=== PATIENT | male | born 1940 | race Caucasian/White ===

== ENCOUNTER → 2017-10-28 | Outpatient (CLI) | payer OTHER ==
--- NOTE | 2017-10-28 16:09 | DIAGNOSTIC IMAGING REPORT ---
CHEST 2 VIEWS ROUTINE HISTORY: 77 years-old Male PAT preoperative exam. No acute chest complaints. COMPARISON: None available TECHNIQUE: PA and lateral views of the chest FINDINGS: Cardiomediastinal and hilar silhouettes are within normal limits. Calcification of the aorta. Minimal subsegmental bibasilar atelectasis. No pneumothorax, pleural effusion, focal airspace consolidation or overt pulmonary edema. Degenerative changes of the shoulders and spine. Surgical clips project over the central lower neck and upper abdomen. IMPRESSION: No acute process. The above report was generated using voice recognition software. It may contain grammatical, syntax or spelling errors. Electronically signed by: Tigre Patterson M.D. 10/28/2017 4:07 PM Dictated Date/Time: 10/28/2017 4:06 PM
[2017-10-28 16:32] LABS: BASO % 0.9 %; BASO ABS # 0.05 K/uL (0-0.2); EOS % 1.3 %; EOS ABS # 0.07 K/uL (0-0.5); HEMATOCRIT 45.8 % (42-52); HEMOGLOBIN 16.2 g/dL (14.0-18.0); IG# 0.01 K/uL (0.00-0.02); LYMPH ABS # 1.74 K/uL (1.2-3.4); MEAN CELL VOLUME 96.8 fL (80-100); MEAN CORPUSCULAR HEMOGLOBIN 34.2 pg (25-34); MEAN CORPUSCULAR HGB CONC 35.4 g/dl (32-36); MONO % 11.4 %; NEUT % 53.2 %; PLATELET COUNT 179 K/uL (130-400); RED CELL DISTRIBUTION WIDTH CV 12.8 % (11.5-14.5); WHITE BLOOD COUNT 5.27 K/uL (4.8-10.8)
[2017-10-28 16:42] LABS: PTT PATIENT 25.4 SECONDS (21.0-31.0)
[2017-10-29 05:34] LABS: HEMOGLOBIN A1C 5.9 % (4.5-5.6)
== END | disposition home or self-care (01) ==
LOC: C.CPL 14:14
PROVIDERS: ATTEND Orthopaedic Surgery
DX: Z01.811 Encounter for preprocedural respiratory examination (principal); Z01.812 Encounter for preprocedural laboratory examination

== ENCOUNTER 2019-12-01 06:43 | Inpatient (IN) ==
--- NOTE | 2019-11-04 09:36 | PAT Medication Instructions ---
Medication Instructions Date of Service November 04, 2019 Home Medications allopurinol 300 mg PO QAM ascorbic acid (vitamin C) [Vitamin C] 1,000 mg PO QAM aspirin [Aspirin Low Dose] 81 mg PO QAM cholecalciferol (vitamin D3) [Vitamin D3] 1,000 unit PO QAM levothyroxine 150 mcg PO QAM lisinopril 5 mg PO QAM metformin 500 mg PO BID multivitamin 1 tab PO QAM pantoprazole 40 mg PO QAM atorvastatin 10 mg PO QAM furosemide [Lasix] 20 mg PO QAM glucos sul 9KZc-[id number]-xibkl-C-Mn [Glucosamine Chondroitin] 2 cap PO DAILY omega 5-ncw-oco-fish oil [Fish Oil] 1 cap PO QAM STOP taking 2 weeks before surgery (or as soon as possible if surgery is within 2 weeks) glucos sul 8HUw-alz-xvsiv-C-Mn [Glucosamine Chondroitin] 2 cap PO DAILY omega 6-dvr-wrr-fish oil [Fish Oil] 1 cap PO QAM DO NOT take the morning of surgery ascorbic acid (vitamin C) [Vitamin C] 1,000 mg PO QAM cholecalciferol (vitamin D3) [Vitamin D3] 1,000 unit PO QAM lisinopril 5 mg PO QAM metformin 500 mg PO BID multivitamin 1 tab PO QAM furosemide [Lasix] 20 mg PO QAM Take morning of surgery With a small sip of water, OTHERWISE NOTHING TO EAT OR DRINK AFTER MIDNIGHT: allopurinol 300 mg PO QAM aspirin [Aspirin Low Dose] 81 mg PO QAM levothyroxine 150 mcg PO QAM pantoprazole 40 mg PO QAM atorvastatin 10 mg PO QAM Take evening before surgery metformin 500 mg PO BID Other Notes If you have any questions please call us at [phone] or [phone] or [phone] or [phone]
--- NOTE | 2019-11-05 11:37 | Anesthesiology Consultation ---
Date of Service November 05, 2019 Assessment & Plan (1) Encounter for pre-operative examination: Chart Review Chart Review: Pending: Refer to Additional Notes / Consult section (surgeon ordered PCP and cardio clearance and preop Covid testing ) Awaiting surgeon ordered PCP clearance (done 11/02) and surgeon ordered cardio clearance (scheduled 11/17) - Check BSG AM DOS Per PAT appt on 11/05/19, patient resides in [facility]. Travels to [facility]. No known Covid positive contacts or Covid related symptoms. Educated patient to follow up with surgeon's office regarding Covid testing. Educated on importance of self quarantining, social distancing and wearing mask in public both for the patient and household contacts. Left TKA 11/26/17= Done under SAB at L3-4. 1 attempt. No anesthesia issues noted per record Teaching & Discussion Pre-Anesthesia Teaching/Discussion Notes: Instructed NPO after midnight before surgery,except medications with 15 cc of water. Medication instructions provided according to the PAT guidelines. History Surgery Operation Date: 12/01/19 07:15 Proposed Procedures p Right Posterior Total Hip Arthroplasty - Aubrey Ashley DO Height/Weight Height: 5 ft 5 in Weight: 105.1 kg Allergies Allergy/AdvReac Type Severity Reaction Status Date / Time No Known Allergies Allergy Verified 05/12/19 14:14 Medications Home Medications Medication Instructions Recorded Confirmed Last Taken allopurinol 300 mg PO QAM 10/28/17 11/04/19 11/26/17 04:30 ascorbic acid (vitamin C) [Vitamin 1,000 mg PO QAM 10/28/17 11/04/19 11/25/17 07:30 C] aspirin [Aspirin Low Dose] 81 mg PO QAM 10/28/17 11/04/19 11/25/17 07:30 cholecalciferol (vitamin D3) 1,000 unit PO QAM 10/28/17 11/04/19 11/25/17 07:30 [Vitamin D3] metformin 500 mg PO BID 10/28/17 11/04/19 Unknown multivitamin 1 tab PO QAM 10/28/17 11/04/19 11/25/17 07:30 pantoprazole 40 mg PO QAM 10/28/17 11/04/19 Unknown atorvastatin 10 mg PO QAM 11/06/17 11/04/19 11/25/17 07:30 furosemide [Lasix] 20 mg PO QAM 11/06/17 11/04/19 11/25/17 07:30 glucos sul 3VVo-llz-iijkd-C-Mn 2 cap PO DAILY 05/12/19 11/04/19 Unknown [Glucosamine Chondroitin] omega 1-pqj-nfu-fish oil [Fish Oil] 1 cap PO QAM 05/12/19 11/04/19 Unknown levothyroxine 125 mcg PO DAILY 11/05/19 11/05/19 Unknown lisinopril 10 mg PO DAILY 11/05/19 11/05/19 Unknown Past Medical History Medical History (Updated 11/05/19 @ 12:38 by Eneida Garcia PA-C) Back problem BPH (benign prostatic hyperplasia) No urinary issues CKD (chronic kidney disease) Pt states PCP recommends caution with IV fluids Diabetes mellitus, type 2 Stable and controlled 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 No issues since off Coumadin GERD (gastroesophageal reflux disease) Well controlled and stable History of gout No recent flares HTN (hypertension) Hyperlipidemia Hypothyroid Due to thyroidectomy Osteoarthritis Exercise / Class Metabolic Activity II 4-5 Yardwork/Stairs/Walk up hill (one flight of stairs - no chest pain or SOB) Past Family History Family History Unknown No problems noted. Sister Family history of diabetes mellitus Past Surgical History Surgical History H/O colonoscopy H/O tooth extraction History of cataract surgery R&L History of cholecystectomy History of colonoscopy History of esophagogastroduodenoscopy (EGD) History of herniorrhaphy History of thyroidectomy, total Pt unsure of why thyroid was removed History of tonsillectomy History of total left knee replacement Past Anesthesia History No Hx of Anesthesia Complications and No Family Hx of Anesthesia Complications History of PONV No Hx of PONV and No Hx of Motion Sickness Social History Smoking Status: Former smoker tobacco type: cigarettes Do You Dip or Chew Tobacco: No Smoking End Date: 30 YEARS AGO Hx Alcohol Use: Yes Alcohol type: beer alcohol intake frequency: 0-2 drinks per day Alcohol Intake Frequency Comment: 3 CANS BEER DAILY Hx Substance Use: No substance use type: does not use Review of Systems Two episodes of chest pain three weeks ago. Occurred at rest. Pain lasted about 30 minutes. Pain mostly to throat. No SOB. Was nauseous. Does have hx of reflux. Pt has cardiac clearance prior to surgery and will discuss with clerk checker Occ snoring and witnessed apnea- no hx of sleep study. Pt does not want sleep study done in future Patient denies shortness of breath, dyspnea on exertion, cough, wheezing, palpitations. No hx of seizures, stroke, ND. No hx of blood transfusions Physical Exam Vital Signs VITALS BP 154/71 P 72 TEMP 98.9 SP02 96% RESP 16 Constitutional no acute distress ENMT Mouth: no TMJ clicking Thyromental Distance: > or= 3.5 Finger Breadths (4.0) Mallampati Class: III Full dentures top and bottom Neck + limited neck extension (moderate ) Respiratory normal respiratory effort; no respiratory distress Auscultation: lungs clear to auscultation bilaterally; no wheezes Cardiovascular Rate/Rhythm: regular rate and regular rhythm Heart Sounds: no murmur Vessels: no carotid bruit Musculoskeletal Spine: no pain with cervical ROM Neurologic moves all extremities Psychiatric Orientation: alert Testing Laboratory Results 11/05/19 12:09 11/05/19 12:09 PT 10.5 Seconds (9.0-12.0) 11/05/19 12:09 INR 1.0 (0.9-1.1) 11/05/19 12:09 APTT 25.4 Seconds (21.0-31.0) 11/05/19 12:09 Hemoglobin A1c 5.7 % (4.5-5.6) H 11/05/19 12:09 Urine Color Yellow 11/05/19 12:09 Urine Appearance Clear (Clear) 11/05/19 12:09 Urine pH 5.0 (4.5-7.5) 11/05/19 12:09 Ur Specific [place] 1.013 (1.000-1.030) 11/05/19 12:09 Urine Protein Negative (Negative) 11/05/19 12:09 Urine Glucose (UA) Negative (Negative) 11/05/19 12:09 Urine Ketones Negative (Negative) 11/05/19 12:09 Urine Nitrite Negative (Negative) 11/05/19 12:09 Ur Leukocyte Esterase Negative (Negative) 11/05/19 12:09 Blood Type A Positive 11/05/19 12:09 Antibody Screen NEGATIVE 11/05/19 12:09 Electrocardiogram Date: 11/05/19 Findings: + NSR @ (68) Chest X-Ray Date: 11/05/19 Findings: + NAD There is stable atelectasis/scarring at the right lung base.
--- NOTE | 2019-11-05 13:15 | XRay Report ---
XR chest Pre-admission PA/Lat CLINICAL HISTORY: Preoperative chest COMPARISON STUDY: 05/19/2019 FINDINGS: The cardiac and mediastinal contours are normal. There is no evidence of focal pulmonary co nsolidation. There is no evidence of failure. No pleural effusions are visualized.[There is stable at electasis/scarring at the right lung base. Surgical clips project over the lower neck. IMPRESSION: No active disease in the chest. ACT 112: Negative or not required by law. Electronically signed by: Tate Decker M.D. 11/05/2019 12:55 PM
[2019-11-05 13:19] LABS: Appearance Urine Clear (Clear); Bilirubin Urine Negative (Negative); Blood Urine Negative (Negative); Color Urine Yellow; Glucose Urine UA Negative (Negative); Ketones Urine Negative (Negative); Leukocyte Esterase Urine Negative (Negative); Nitrite Urine Negative (Negative); Protein Urine Negative (Negative); Specific Gravity Urine 1.013 (1.000-1.030); Urobilinogen Urine Negative (Negative)
[2019-11-05 13:22] LABS: Basophils # (auto) 0.04 K/uL (0-0.2); Basophils % (auto) 0.6 %; Eosinophils # (auto) 0.14 K/uL (0-0.5); Eosinophils % (auto) 2.3 %; Hematocrit (blood only) 39.6 % (42-52); Immature Granulocytes # (auto) 0.02 K/uL (0.00-0.02); Immature Granulocytes % (auto) 0.3 %; Lymphocytes # (auto) 1.57 K/uL (1.2-3.4); Lymphocytes % (auto) 25.2 %; Mean Corpuscular Hemoglobin 33.6 pg (25-34); Mean Corpuscular Hgb Conc 35.4 g/dL (32-36); Mean Platelet Volume 9.4 fL (7.4-10.4); Monocytes # (auto) 0.63 K/uL (0.11-0.59); Monocytes % (auto) 10.1 %; Neutrophils # (auto) 3.82 K/uL (1.4-6.5); Neutrophils % (auto) 61.5 %; Platelet Count 177 K/uL (130-400); RDW Coefficient of Variation 12.6 % (11.5-14.5); RDW Standard Deviation 43.2 fL (36.4-46.3); Red Blood Count 4.17 M/uL (4.7-6.1); White Blood Count 6.22 K/uL (4.8-10.8)
[2019-11-05 13:36] LABS: Partial Thromboplastin Ratio 0.9; Partial Thromboplastin Time 25.4 Seconds (21.0-31.0); Prothrombin Time 10.5 Seconds (9.0-12.0)
[2019-11-05 13:38] LABS: Estimated Average Glucose 117 mg/dl; Hemoglobin A1C 5.7 % (4.5-5.6)
[2019-11-05 15:37] LABS: BUN Creatinine Ratio 9.6 (10-20); Calcium 9.3 mg/dl (8.5-10.1); Creatinine Clr Calc Pharmacy 49.1 ml/min; Est GFR (African American) 57.6; Est GFR (Non-African American) 49.7; Potassium 4.3 mmol/L (3.5-5.1)
--- NOTE | 2019-11-06 06:49 | Electrocardiogram Report ---
Test Reason : Blood Pressure : / mmHG Vent. Rate : 068 BPM Atrial Rate : 068 BPM P-R Int : 186 ms QRS Dur : 080 ms QT Int : 424 ms P-R-T Axes : 058 013 045 degrees QTc Int : 450 ms Normal sinus rhythm Normal ECG When compared with ECG of 19-MAY-2019 12:24, No significant change was found Confirmed by Russell Zhang ([id number]) on 11/06/2019 6:49:05 AM Referred By: Aubrey Ashley Confirmed By:Russell Zhang
--- NOTE | 2019-11-28 17:24 | History & Physical Report ---
Date of Service December 01, 2019 Assessment & Plan (1) Degenerative joint disease of right hip: I have indicated the patient for right total hip replacement. The risks, benefits and complications of surgery were explained to the patient which include but not limited to infection, acute blood loss, DVT/PE, injury to nerves, vessels, bone, soft tissue, arthrofibrosis, chronic pain, failure of the prosthesis, hip dislocation, leg length discrepancy, need for additional surgery, cardiac and pulmonary events and . The patient wished to proceed with surgery and informed consent was obtained at this time. We will plan for 81mg ASA BID post-operatively for DVT prophylaxis. Upon discharge the patient will be discharged home with home health services. Appropriate clearances by ISMAEL Dave were obtained. History of Present Illness Chief Complaint: Right hip pain/DJD The patient is a 79 year old male who presents with complaints of severe right hip pain and DJD. The patient has failed outpatient conservative treatments to this point which included NSAIDs, IA corticosteroid injection, home exercise/walking program. The patient's pain and limited function have progressed to the point where they severely hinder their activities of daily living and they no longer tolerate exercise programs. They are requesting to proceed with total hip replacement surgery. Allergies Allergy/AdvReac Type Severity Reaction Status Date / Time No Known Allergies Allergy Verified 12/01/19 07:13 Home Medications Home Medications Medication Instructions Recorded Confirmed Type Vitamin C 1,000 mg PO QAM 10/28/17 12/01/19 History allopurinol 300 mg PO QAM 10/28/17 12/01/19 History aspirin [Aspirin Low Dose] 81 mg PO QAM 10/28/17 12/01/19 History cholecalciferol (vitamin D3) 1,000 unit PO QAM 10/28/17 12/01/19 History [Vitamin D3] metformin 500 mg PO BID 10/28/17 12/01/19 History multivitamin 1 tab PO QAM 10/28/17 12/01/19 History pantoprazole 40 mg PO QAM 10/28/17 12/01/19 History atorvastatin 10 mg PO QAM 11/06/17 12/01/19 History furosemide [Lasix] 20 mg PO QAM 11/06/17 12/01/19 History glucos sul 7GAs-jpk-sjpil-C-Mn 2 cap PO DAILY 05/12/19 12/01/19 History [Glucosamine Chondroitin] omega 4-sgg-ljz-fish oil [Fish Oil] 1 cap PO QAM 05/12/19 12/01/19 History levothyroxine 125 mcg PO DAILY 11/05/19 12/01/19 History lisinopril 10 mg PO DAILY 11/05/19 12/01/19 History Past Med/Surg History Medical History Back problem BPH (benign prostatic hyperplasia) No urinary issues CKD (chronic kidney disease) Pt states PCP recommends caution with IV fluids Diabetes mellitus, type 2 Stable and controlled 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 No issues since off Coumadin GERD (gastroesophageal reflux disease) Well controlled and stable History of gout No recent flares HTN (hypertension) Hyperlipidemia Hypothyroid Due to thyroidectomy Osteoarthritis Surgical History H/O colonoscopy H/O tooth extraction History of cataract surgery R&L History of cholecystectomy History of colonoscopy History of esophagogastroduodenoscopy (EGD) History of herniorrhaphy History of thyroidectomy, total Pt unsure of why thyroid was removed History of tonsillectomy History of total left knee replacement Family History Unknown No problems noted. Sister Family history of diabetes mellitus Social History Smoking Status: Former smoker Smoking End Date: 30 YEARS AGO; Second Hand Exposure: Yes; Do You Dip or Chew Tobacco: No; Tobacco Cessation Education Requested by Patient: No Hx Alcohol Use: Yes Alcohol type: beer Hx Substance Use: No Preferred Language: Turkish Communication Ability: Effective Retrimmer Required: No Beliefs That Will Affect Care: None marital status: Life Partner Current Living Situation: Significant Other Feels Safe at Home: Yes Safety Concerns: Feels Safe At This Time Assistive Devices: Denture - Upper, Denture - Lower and Glasses Review of Systems Review of Systems: All systems reviewed & are unremarkable except as noted in HPI & below Constitutional: as per Subjective / HPI Physical Exam Physical Exam: RLE NVSI +EHL/FHL/TA/GS SILT grossly, +2 DP pulse, compartments soft NT, limited painful ROM of the hip, antalgic gait. Constitutional: WD/WN, vitals as above Eyes: PERRL, conjunctivae normal, anicteric sclerae ENMT: external ear and nose normal, oropharynx normal Neck: trachea midline, no thyromegaly Respiratory: normal respiratory effort, lungs clear to auscultation Cardiovascular: RRR, no murmur, no edema Gastrointestinal (Abdomen): normal bowel sounds, soft, nontender, no hepatosplenomegaly Musculoskeletal: no cyanosis or clubbing, extremities motor strength 5/5 Skin: no rashes, warm and dry Neurologic: patellar DTR's 2+ bilat, sensation intact Psychiatric: A+Ox3, euthymic affect Lymphatic: no cervical or axillary lymphadenopathy Results & Data Results & Data ([facility]) Diagnostic Findings Multiple views of the hip demonstrates severe DJD with complete loss of the joint space. +osteophytes, +sclerosis, +subchondral cysts. Pre Admission Testing Addendum Laboratory Results 11/05/19 12:09 11/05/19 12:09 PT 10.5 Seconds (9.0-12.0) 11/05/19 12:09 INR 1.0 (0.9-1.1) 11/05/19 12:09 APTT 25.4 Seconds (21.0-31.0) 11/05/19 12:09 Hemoglobin A1c 5.7 % (4.5-5.6) H 11/05/19 12:09 Urine Color Yellow 11/05/19 12:09 Urine Appearance Clear (Clear) 11/05/19 12:09 Urine pH 5.0 (4.5-7.5) 11/05/19 12:09 Ur Specific [place] 1.013 (1.000-1.030) 11/05/19 12:09 Urine Protein Negative (Negative) 11/05/19 12:09 Urine Glucose (UA) Negative (Negative) 11/05/19 12:09 Urine Ketones Negative (Negative) 11/05/19 12:09 Urine Nitrite Negative (Negative) 11/05/19 12:09 Ur Leukocyte Esterase Negative (Negative) 11/05/19 12:09 Blood Type A Positive 11/05/19 12:09 Antibody Screen NEGATIVE 11/05/19 12:09
[~2019-12-01 06:43] MED LIST: ACETAMINOPHEN 500 MG TAB PO SCH; BUPIVACAINE 0.5 % 5 MG/1 ML PF 10ML VIAL ONE; CEFAZOLIN 2000MG 2,000 MG/15 ML SYR IV SCH; CeleBREX 200 MG CAP PO SCH; FAMOTIDINE 20 MG TAB PO SCH; GABAPENTIN 300 MG CAP PO SCH; LR 15ML/HR IV SCH; METOCLOPRAMIDE HCL 10 MG TABLET PO SCH; ROPIVACAINE 0.5% HCL/PF 150 MG, BUPIVACAINE 0.5% MPF 30 ML, EPINEPHrine 30MG/30ML (OR U... INFIL SCH; TRANEXAMIC ACID 1,000 MG **IV Intra-op IV SCH; TRANEXAMIC ACID 1,000 MG **IV Pre-op IV SCH; dexAMETHasone 4 MG TAB PO SCH
[2019-12-01] MEDS ORDERED: fentaNYL citrate 100 MCG/2 ML VIAL ONE (07:47)
[2019-12-01] MEDS ORDERED: MIDAZOLAM HCL 1 MG/ML 2ML VIAL ONE (07:47)
[2019-12-01] MEDS ORDERED: PROPOFOL IV EMULSION 10 MG/ML 20 ML VIAL IV ONE ×2 (07:49→10:56)
[2019-12-01] MEDS ORDERED: ePHEDrine sulfate 50 MG/ML AMP IV PRN (08:54)
[2019-12-01] MEDS ORDERED: ATROPINE SULFATE 0.1 MG/ML 10ML SYR IV PRN (08:54)
[2019-12-01] MEDS ORDERED: ONDANSETRON INJ 2 MG/ML 2 ML VIAL IV PRN ×2 (08:54→13:48)
[2019-12-01] MEDS ORDERED: HYDROmorphone INJ 1 MG/ML SYRINGE IV PRN (08:54)
[2019-12-01] MEDS ORDERED: KETOROLAC 30 MG/ML VIAL IV PRN (08:54)
--- NOTE | 2019-12-01 09:49 | History & Physical Bridge Note ---
Date of Service December 01, 2019 History & Physical Bridge Note I have examined the patient, reviewed the History & Physical and in the interval since the performance of the History & Physical I have noted the following changes of clinical significance: no changes noted
[2019-12-01] MEDS ORDERED: BACITRACIN INJ 50,000 UNIT VIAL ONE (10:03)
[2019-12-01] MEDS ORDERED: ORTHO JOINT ANESTHETIC ONE (10:03)
[2019-12-01] MEDS ORDERED: PHENYLEPHRINE HCL 10 MG/ML VIAL ONE (10:56)
[2019-12-01] MEDS ORDERED: GLYCOPYRROLATE 0.2 MG/ML VIAL ONE (11:50)
--- NOTE | 2019-12-01 12:17 | Post Operative Brief Note ---
Immediate Post Op Note v1 Date of Surgery December 01, 2019 Pre & Post Diagnosis Operation Date: 12/01/19 09:15 Pre-Op Diagnosis: Unilateral Primary Osteoarthritis, Right Hip Post-Op Diagnosis: Unilateral Primary Osteoarthritis, Right Hip I identified the patient and participated in the time-out.: Yes Procedure Operation Date: 12/01/19 09:15 Actual Procedures p Right Posterior Total Hip Arthroplasty(Right) - Aubrey Ashley DO Surgeon Aubrey Ashley DO Contracts Manager Raphael Roper Estimated Blood Loss 175 Findings Consistent with Post-Op Diagnosis Fluids 1000 cc LR Specimens femoral head Anesthesia Type Spinal MAC Complications none Disposition Disposition: Recovery Room Overlapping Procedure I was present for: the critical portions of procedure. I was immediately available: during the entire case. Back up surgeon: was not required during procedure.
--- NOTE | 2019-12-01 12:21 | Operative Report ---
Post Operative Report Pre & Post Diagnosis Operation Date: 12/01/19 09:15 Pre-Op Diagnosis: Unilateral Primary Osteoarthritis, Right Hip Post-Op Diagnosis: Unilateral Primary Osteoarthritis, Right Hip I identified the patient and participated in the time-out.: Yes Procedure Operation Date: 12/01/19 09:15 Actual Procedures p Right Posterior Total Hip Arthroplasty(Right) - Aubrey Ashley DO Surgeon Aubrey Ashley DO Plastic Panel Installer Raphael Roper Estimated Blood Loss 175 Findings Consistent with Post-Op Diagnosis Fluids 1000 cc LR Specimens Femoral head Anesthesia Type Spinal MAC Complications none Disposition Disposition: Recovery Room Indications The patient is a 79-year-old male who presents with severe progressive right hip DJD who has failed outpatient conservative treatments. I indicated the patient for a total hip replacement and the risks and benefits were explained in detail which included but not limited to infection, bleeding, blood clot, damage to surrounding bone, nerves, vessels, soft tissue, hip dislocation, failure of the prosthesis, leg length discrepancy, need for additional surgery and . The patient agreed to proceed with replacement of the hip and informed consent was obtained. Appropriate clearances were obtained. Description of Procedure COMPONENTS USED: Sarah Biomet hip system: Acetabulum size 54, femur size 11 standard extended offset, femoral head 36-3.5, liner 5436, acetabular screw 35 mm x 1. Following induction of adequate spinal anesthesia, the patient was transferred to the OR table and placed in lateral decubitus position with left hip down. The right hip was prepped and draped in the typical sterile fashion. A timeout was performed, patient identified and site yudi confirmed. Appropriate antibiotics were given. A standard posterolateral/[place] incision was made. Subcutaneous tissue was sharply dissected. Electrocautery was utilized for hemostasis. The fascia was incised throughout the length of the wound and retracted with the Charnley retractor. The bursa was taken down and the short external rotators were identified. The piriformis was tagged with #1 Vicryl. The short external rotators and capsule were divided from the posterior aspect of the femur using electrocautery. The posterior capsule was tagged with #1 Vicryl. Both external rotators and posterior capsule were swept posterior and protected, along with protecting the sciatic nerve. The hip was dislocated by flexion and internally rotation in a controlled manner and exposure of the femoral neck was gained with an old-style Hohmann and a blunt cobra retractor. A femoral cutting guide was utilized for making the appropriate level femoral neck cut with reciprocating saw. The femoral head was removed, measured and reserved on the back table. Next, attention was turned to the acetabulum. A posterior and anterior offset retractor was placed to gain adequate exposure. Acetabular labrum as well as posterior capsule elements were removed using electrocautery and forceps. Fovea centralis was cleared of all soft tissue. Sequential reaming was performed starting at 46 mm and carried up to a 53 mm and decision was made to proceed with impaction of a 54 mm G7 Osteo-Ti cup. This was impacted and held using a single 35 mm bone screw. The trial acetab ular liner was placed at this time. Next, attention was turned to the proximal femur where a Bovie and pickup was used to further clear short external rotators from their insertion on the femur. Box osteotome and canal finder was used to gain access to the femoral canal and the lateral reamer on power was used to further open the proximal lateral canal. Sequentially rasping was carried up to a 11 which gave good fit and fill of the proximal femur. A trial reduction was carried out with a standard extended offset femoral neck component a 36-3.5 mm femoral head. The trial reduction was stable in all degrees of rotation with no fxhf-er-omuc impingement. The hip was dislocated, trial components were removed and access to the acetabulum was re-established. The trial liner was removed and the cup was irrigated to ensure all debris was removed. The final acetabular liner was inserted and properly seated in the cup. Access to the femur was once more gained and the size 11 femoral stem with standard extended offset was impacted into position. The hip was once more assessed with the 36-3.5 mm femoral head. Stability was accessed and found to be excellent with equal leg lengths. The hip was dislocated for the last time and the final 36-3.5 ceramic femoral head was impacted in place and the hip was reduced. Range of motion was checked once again and found to be stable. A Beta dine soak was performed. After 3 minutes, the hip was once more irrigated with copious sterile saline solution with bacitracin. The maria elena-incisional soft tissue was injected utilizing [place] ortho mix which includes a combination of Ropivicaine 0.5% 150mg, Bupivicaine 0.5%/Epinephrine 1:200,000 30ml, Toradol 30mg, Dexamethasone 4mg, Ketamine 10mg, Clonidine 100mcg and NSS 30ml Orthomix solution. The piriformis, external rotators and capsule were repaired to the greater trochanter through bone tunnels using #5 FiberWire. The fascia was closed using #1 Vicryl, subcutaneous tissue was closed using 2-0 Vicryl, and skin was closed asia and a sterile dry dressing was applied which included Silverlon. The patient tolerated the procedure well and was transported to PACU in stable condition. Due to the complex nature of the procedure, the entire surgery was performed with the operational assistance of Raphael Roper PA-C. The pizza hut assistant, under direct supervision, was involved in the actual performance of all aspects of the surgical procedure including patient positioning, hemostasis, tissue retraction, instrument management and wound closure. I attest to the content of the Intraoperative Record and any orders documented therein. Any exceptions are noted below.
--- NOTE | 2019-12-01 13:10 | Anesthesiology Progress Note ---
Date of Service December 01, 2019 Anesthesia Post Procedure Vital Signs Vital Signs: Temp Pulse Resp BP BP Pulse Ox 12/01/19 13:05 68 15 105/61 95 12/01/19 12:55 69 17 140/71 94 12/01/19 12:45 63 18 133/77 97 12/01/19 12:37 36.7 C 65 19 118/62 97 12/01/19 07:08 37.2 C 68 18 158/77 H 94 Pain Intensity Right Hip: Pain Intensity: 2 Transfer of Care Handoff Completed per policy Notes Mental Status: alert / awake / arousable Patient Amnestic to Procedure: Yes Nausea / Vomiting: adequately controlled Pain: adequately controlled Airway Patency, RR, SpO2: stable & adequate BP & HR: stable & adequate Hydration State: stable & adequate Neuraxial Anesthesia: was administered and sensory block is resolving Anesthetic Complications: no major complications apparent
--- NOTE | 2019-12-01 13:33 | XRay Report ---
XR hip 1V RT w pelvis CLINICAL HISTORY: IN PACU - A/P PELVIS and LATERAL HIP COMPARISON: None. DISCUSSION: There are postsurgical changes of a total right hip arthroplasty. The acetabular and femo ral components appear well seated. There is no dislocation. There are overlying skin asia. There i s gas present within the soft tissues consistent with recent surgery. IMPRESSION: Postsurgical changes of a total right hip arthroplasty. ACT 112: Negative or not required by law. Electronically signed by: Tate Decker M.D. 12/01/2019 1:32 PM
[2019-12-01] MEDS ORDERED: METOCLOPRAMIDE HCL INJ 5 MG/ML 2 ML VIAL IV PRN (13:48)
[2019-12-01] MEDS ORDERED: HYDROmorphone INJ 0.5 MG/0.5 ML SYR IV PRN (13:48)
[2019-12-01] MEDS ORDERED: bisacodyL 10 MG SUPP PR PRN (13:48)
[2019-12-01] MEDS ORDERED: NALOXONE HCL 0.4 MG/1 ML VIAL/CARP IV PRN (13:48)
[2019-12-01] MEDS ORDERED: MAGNESIUM HYDROXIDE SUSP 30 ML UDC PO PRN (13:48)
[2019-12-01] MEDS ORDERED: OXYCODONE HCL IR 5 MG TAB (IMMEDIATE RELEASE) PO PRN (13:48)
[2019-12-01] MEDS ORDERED: PHARMACY GLYCEMIC MGMT CONSULT PRN (14:05)
--- NOTE | 2019-12-01 14:07 | Pharmacy Report ---
Glycemic Control Consultation - Date of Service December 01, 2019 - Scope Scope: Glycemic Pharmacist consulted for glycemic control and to write orders per [facility] inpatient glycemic control protocol. - Objective Weight: 105.5 kg Accuchecks BSG (last 24hrs): 12/01/19 12/01/19 07:05 12:40 POC Glucose 124 H 159 H HbA1c: Hemoglobin A1c 5.7 % (4.5-5.6) H 11/05/19 12:09 - Recent Pertinent Medications Outpatient Anti-diabetic Regimen: * METFORMIN 500 MG PO BID Risk Factors for Insulin Resistance: * Steroids: DEXAMETHASONE 8 MG PO PREOP + DEXAMETHASONE 4 MG TOPICALLY * Recent Surgery: POD 0 FOR HIP SURGERY * Diet: ORDERED - Assessment & Plan Assessment & Plan: ASSESSMENT: * Mr Olvera is an 79 y/o M with a PMH of well controlled T2DM who presents for R hip surgery. Patient received dexamethasone 8 mg PO preop and 4 mg topically in joint mix. Fasting blood sugar was 124 mg/dL. * NPH 15 units SQ x 1 (0.2 units/kg of AdjBW) -- lower than normal dose chosen due to body habitus as well as excellent glycemic control on 1 oral medicati on. Novolog weight-based stress of 3 ordered. * ADA & AACE recommend a goal blood sugar range 140-180 mg/dl for the majority of critically ill & non-critically ill patients. However, more stringent t argets may be selected in individual cases. Will utilize more stringent goal of 110-140mg/dl based on patient age & comorbidities. Additionally, tighter glycemic control is warranted to facilitate wound healing. * Pt is maintained on oral antidiabetic agents as an outpatient * Oral agents are not recommended for inpatient use d/t drug interactions, changing PO intake, and difficulty titrating for acute hyper/hypoglycemia. ADA recommends re-initiating outpatient oral agents 1-2 days prior to discharge if/when appropriate if they were held on admission. PLAN FOR INPATIENT GLYCEMIC CONTROL: * Holding outpatient oral diabetes medications- plan to restart POD 1 * Basal insulin * NPH 15 units SQ x 1 * Bolus insulin * NovoLog per scale ACHS or Q6hrs while NPO * Goal Range: Low 110 mg/dL - High 140 mg/dL * Correction Factor: 25 mg/dL/unit * Nutritional / Prandial insulin per carb ratio of 1 unit per 7 grams CHO consumed Recommendation for Outpatient Regimen * Patient's HbA1C well controlled and below goal of 7% * Recommend continuing current outpatient therapy as long as eGFR remains above 30 mL/min Thank you.
[2019-12-01] MEDS ORDERED: GLUCAGON FOR INJ 1 MG VIAL IM PRN (14:15)
[2019-12-01] MEDS ORDERED: DEXTROSE 50% 50 ML SYRINGE IV PRN (14:15)
[2019-12-01] MEDS ORDERED: CARBOHYDRATES FOR HYPOGLYCEMIA PO PRN (14:15)
[2019-12-01] MEDS ORDERED: GLUCOSE 40% GEL 15 GM TUBE PO PRN (14:15)
[2019-12-01] MEDS ORDERED: GLUCOSE 10 TABS/TUBE PO PRN (14:15)
[2019-12-01] MEDS ORDERED: NovoLIN-N (NPH) PER UNIT CHARGE SQ ONE (14:30)
[2019-12-01] MEDS: ACETAMINOPHEN 500 MG TAB PO SCH ×2 (14:33→20:58)
[2019-12-01] MEDS: SODIUM CHLORIDE 0.9% 1000ML 1,000 ML IV SCH (15:00)
[2019-12-01] MEDS: INSULIN ASPART 100 UNITS/ML 3 ML PEN SC SCH ×3 (16:10→21:00)
--- NOTE | 2019-12-01 17:45 | Orthopedic Progress Note ---
Date of Service December 01, 2019 Assessment & Plan (1) Degenerative joint disease of right hip: Status post right total hip arthroplasty -Ancef x 24 -DVT prophylaxis: SCDs, teds, 81mg ASA twice daily -Weight-bear as tolerated right lower extremity -PT/OT -Postoperative x-ray demonstrates a well line well fixed prosthesis without fracture or dislocation -A.m. labs -DC planning Admission and Anticipated Discharge Date Admission Date: December 01, 2019 Subjective Post Operative Progress Note Patient seen sitting up in bed, comfortable, denies complaints, pain well controlled, no acute issues. Review of Systems Review of Systems: All systems reviewed & are unremarkable except as noted in HPI & below Constitutional: as per Subjective / HPI Physical Exam Physical Exam: RLE NVSI +EHL/FHL/TA/GS SILT grossly, +2 DP pulse, compartments soft NT, dressing cdi. Constitutional: WD/WN, vitals as above Results & Data ([facility]) Vital Signs (Past 12 Hours) Vital Signs Temp Pulse Resp BP BP Pulse Ox 12/01/19 16:30 36.3 C L 55 L 16 151/72 H 99 12/01/19 15:36 36.3 C L 62 16 147/78 H 99 12/01/19 14:28 36.3 C L 61 18 144/77 H 97 12/01/19 14:06 36.4 C L 68 16 133/75 99 12/01/19 13:30 36.6 C 64 16 118/68 96 12/01/19 13:15 60 17 113/65 94 12/01/19 13:05 36.4 C L 68 15 105/61 95 12/01/19 12:55 69 17 140/71 94 12/01/19 12:45 63 18 133/77 97 12/01/19 12:37 36.7 C 65 19 118/62 97 12/01/19 07:08 37.2 C 68 18 158/77 H 94
[2019-12-01] MEDS: CEFAZOLIN 3,000 MG in DEXTROSE 5% 50 ML IV SCH (18:19)
[2019-12-01] MEDS: DOCUSATE SODIUM 100 MG CAP PO SCH (20:59)
[2019-12-01] MEDS ORDERED: SENNA 8.6 MG TAB PO SCH (21:00)
[2019-12-02] MEDS: INSULIN ASPART 100 UNITS/ML 3 ML PEN SC SCH ×4 (00:32→12:32)
[2019-12-02] MEDS: CEFAZOLIN 3,000 MG in DEXTROSE 5% 50 ML IV SCH (01:37)
[2019-12-02] MEDS: SODIUM CHLORIDE 0.9% 1000ML 1,000 ML IV SCH (03:34)
[2019-12-02] MEDS: ACETAMINOPHEN 500 MG TAB PO SCH ×2 (05:06→12:35)
[2019-12-02 05:44] LABS: Basophils # (auto) 0.01 K/uL (0-0.2); Basophils % (auto) 0.1 %; Hematocrit (blood only) 34.4 % (42-52); Hemoglobin 12.2 g/dL (14.0-18.0); Immature Granulocytes # (auto) 0.03 K/uL (0.00-0.02); Immature Granulocytes % (auto) 0.2 %; Lymphocytes # (auto) 1.24 K/uL (1.2-3.4); Lymphocytes % (auto) 9.6 %; Mean Corpuscular Hemoglobin 33.4 pg (25-34); Mean Corpuscular Hgb Conc 35.5 g/dL (32-36); Mean Corpuscular Volume 94.2 fL (80-100); Mean Platelet Volume 9.6 fL (7.4-10.4); Monocytes # (auto) 1.19 K/uL (0.11-0.59); Monocytes % (auto) 9.2 %; Neutrophils # (auto) 10.44 K/uL (1.4-6.5); Neutrophils % (auto) 80.9 %; Platelet Count 174 K/uL (130-400); RDW Coefficient of Variation 12.5 % (11.5-14.5); RDW Standard Deviation 42.9 fL (36.4-46.3); Red Blood Count 3.65 M/uL (4.7-6.1); White Blood Count 12.91 K/uL (4.8-10.8)
[2019-12-02 06:10] LABS: BUN Creatinine Ratio 13.4 (10-20); Calcium 8.1 mg/dl (8.5-10.1); Creatinine Clr Calc Pharmacy 42.8 ml/min; Est GFR (African American) 48.7; Potassium 4.2 mmol/L (3.5-5.1)
[2019-12-02] MEDS ORDERED: LEVOTHYROXINE SODIUM 125 MCG TABLET PO SCH (06:30)
[2019-12-02] MEDS ORDERED: NovoLIN-N (NPH) PER UNIT CHARGE SQ ONE (08:30)
[2019-12-02] MEDS: DOCUSATE SODIUM 100 MG CAP PO SCH (08:43)
[2019-12-02] MEDS ORDERED: FUROSEMIDE 20 MG TAB PO SCH (09:00)
[2019-12-02] MEDS ORDERED: ATORVASTATIN 10 MG TAB PO SCH (09:00)
[2019-12-02] MEDS ORDERED: MULTIVITAMIN TAB PO SCH (09:00)
[2019-12-02] MEDS ORDERED: ASPIRIN 81 MG ECTAB PO SCH (09:00)
[2019-12-02] MEDS ORDERED: PANTOprazole 40 MG TAB PO SCH (09:00)
[2019-12-02] MEDS ORDERED: lisinopriL 10 MG TAB PO SCH (09:00)
[2019-12-02] MEDS ORDERED: SODIUM CHLORIDE 0.9% 1000ML 1,000 ML IV SCH (09:00)
[2019-12-02] MEDS ORDERED: allopurinoL 300 MG TAB PO SCH (09:00)
--- NOTE | 2019-12-02 09:24 | Orthopedic Progress Note ---
Date of Service December 02, 2019 Assessment & Plan (1) Degenerative joint disease of right hip: Status post right total hip arthroplasty POD#1 -Ancef x 24 -DVT prophylaxis: SCDs, teds, 81mg ASA twice daily -Weight-bear as tolerated right lower extremity -PT/OT -Postoperative x-ray demonstrates a well line well fixed prosthesis without fracture or dislocation -A.m. labs - as above, hgb 12.2 -ZOE - Cr 1.54, will monitor, encouraged PO fluids, 1 L IV fluids ordered, will recheck in afternoon. -DC planning - home with Admission and Anticipated Discharge Date Admission Date: December 01, 2019 Subjective Post Operative Progress Note Patient seen sitting up on the edge of the bed, comfortable, denies complaints, pain well controlled, no acute issues. Denies F/C/N/V/SOB/CP. Review of Systems Review of Systems: All systems reviewed & are unremarkable except as noted in HPI & below Constitutional: as per Subjective / HPI Physical Exam Physical Exam: RLE NVSI +EHL/FHL/TA/GS SILT grossly, +2 DP pulse, compartments soft NT, dressing cdi. Constitutional: WD/WN, vitals as above Results & Data ([facility]) Vital Signs (Past 12 Hours) Vital Signs Temp Pulse Resp BP Pulse Ox 12/02/19 07:12 36.9 C 56 L 16 167/79 H 98 12/02/19 03:35 36.9 C 54 L 16 154/72 H 96 12/01/19 23:05 36.7 C 50 L 18 134/73 95 Laboratory Results 12/02/19 12/02/19 12/02/19 Range/Units 08:11 05:22 05:22 WBC 12.91 H (4.8-10.8) K/uL RBC 3.65 L (4.7-6.1) M/uL Hgb 12.2 L (14.0-18.0) g/dL Hct 34.4 L (42-52) % MCV 94.2 (80-100) fL MCH 33.4 (25-34) pg MCHC 35.5 (32-36) g/dL RDW Std Deviation 42.9 (36.4-46.3) fL RDW Coeff of Jacob 12.5 (11.5-14.5) % Plt Count 174 (130-400) K/uL MPV 9.6 (7.4-10.4) fL Immature Gran % (Auto) 0.2 % Neut % (Auto) 80.9 % Lymph % (Auto) 9.6 % Ceiba % (Auto) 9.2 % Eos % (Auto) 0.0 % Baso % (Auto) 0.1 % Neut # (Auto) 10.44 H (1.4-6.5) K/uL Lymph # (Auto) 1.24 (1.2-3.4) K/uL Ceiba # (Auto) 1.19 H (0.11-0.59) K/uL Eos # (Auto) 0.00 (0-0.5) K/uL Baso # (Auto) 0.01 (0-0.2) K/uL Immature Gran # (Auto) 0.03 H (0.00-0.02) K/uL Sodium 138 (136-145) mmol/L Potassium 4.2 (3.5-5.1) mmol/L Chloride 106 (98-107) mmol/L Carbon Dioxide 24 (21-32) mmol/L Anion Gap 8.0 (3-11) BUN 21 H (7-18) mg/dl Creatinine 1.54 H (0.6-1.4) mg/dl Est Cr Clr Drug Dosing 42.8 ml/min Est GFR ( Amer) 48.7 Est GFR (Non-Af Amer) 42.0 BUN/Creatinine Ratio 13.4 (10-20) Glucose 138 H (70-99) mg/dl POC Glucose 144 H (70-99) mg/dl Calcium 8.1 L (8.5-10.1) mg/dl 12/02/19 12/01/19 12/01/19 Range/Units 03:34 23:47 20:34 WBC (4.8-10.8) K/uL RBC (4.7-6.1) M/uL Hgb (14.0-18.0) g/dL Hct (42-52) % MCV (80-100) fL MCH (25-34) pg MCHC (32-36) g/dL RDW Std Deviation (36.4-46.3) fL RDW Coeff of Jacob (11.5-14.5) % Plt Count (130-400) K/uL MPV (7.4-10.4) fL Immature Gran % (Auto) % Neut % (Auto) % Lymph % (Auto) % Ceiba % (Auto) % Eos % (Auto) % Baso % (Auto) % Neut # (Auto) (1.4-6.5) K/uL Lymph # (Auto) (1.2-3.4) K/uL Ceiba # (Auto) (0.11-0.59) K/uL Eos # (Auto) (0-0.5) K/uL Baso # (Auto) (0-0.2) K/uL Immature Gran # (Auto) (0.00-0.02) K/uL Sodium (136-145) mmol/L Potassium (3.5-5.1) mmol/L Chloride (98-107) mmol/L Carbon Dioxide (21-32) mmol/L Anion Gap (3-11) BUN (7-18) mg/dl Creatinine (0.6-1.4) mg/dl Est Cr Clr Drug Dosing ml/min Est GFR ( Amer) Est GFR (Non-Af Amer) BUN/Creatinine Ratio (10-20) Glucose (70-99) mg/dl POC Glucose 144 H 135 H 210 H (70-99) mg/dl Calcium (8.5-10.1) mg/dl 12/01/19 12/01/19 12/01/19 Range/Units 17:04 14:09 12:40 WBC (4.8-10.8) K/uL RBC (4.7-6.1) M/uL Hgb (14.0-18.0) g/dL Hct (42-52) % MCV (80-100) fL MCH (25-34) pg MCHC (32-36) g/dL RDW Std Deviation (36.4-46.3) fL RDW Coeff of Jacob (11.5-14.5) % Plt Count (130-400) K/uL MPV (7.4-10.4) fL Immature Gran % (Auto) % Neut % (Auto) % Lymph % (Auto) % Ceiba % (Auto) % Eos % (Auto) % Baso % (Auto) % Neut # (Auto) (1.4-6.5) K/uL Lymph # (Auto) (1.2-3.4) K/uL Ceiba # (Auto) (0.11-0.59) K/uL Eos # (Auto) (0-0.5) K/uL Baso # (Auto) (0-0.2) K/uL Immature Gran # (Auto) (0.00-0.02) K/uL Sodium (136-145) mmol/L Potassium (3.5-5.1) mmol/L Chloride (98-107) mmol/L Carbon Dioxide (21-32) mmol/L Anion Gap (3-11) BUN (7-18) mg/dl Creatinine (0.6-1.4) mg/dl Est Cr Clr Drug Dosing ml/min Est GFR ( Amer) Est GFR (Non-Af Amer) BUN/Creatinine Ratio (10-20) Glucose (70-99) mg/dl POC Glucose 279 H 184 H 159 H (70-99) mg/dl Calcium (8.5-10.1) mg/dl
--- NOTE | 2019-12-02 12:02 | Pharmacy Report ---
Glycemic Control Progress Note - Date of Service December 02, 2019 - Scope Glycemic Pharmacist consulted for glycemic control to write orders per [facility] inpatient glycemic control protocol. - Objective Accuchecks BSG(last 24 hours):: 12/01/19 12/01/19 12/01/19 12:40 14:09 17:04 Glucose POC Glucose 159 H 184 H 279 H 12/01/19 12/01/19 12/02/19 20:34 23:47 03:34 Glucose POC Glucose 210 H 135 H 144 H 12/02/19 12/02/19 05:22 08:11 Glucose 138 H POC Glucose 144 H HbA1c:: Hemoglobin A1c 5.7 % (4.5-5.6) H 11/05/19 12:09 - Recent Pertinent Medications The patient is currently receiving: * Basal insulin: NPH 15 units SQ x 1 * Correctional Insulin: Novolog Correction per scale ACHS Goal Range: Low 110 mg/dL - High 140 mg/dL Correction Factor: 20 mg/dL/unit * Prandial insulin: Per carb ratio of 1 unit per 6 grams CHO consumed - Outpatient Anti-Diabetic Meds metformin 500 mg BID - Assessment & Plan ASSESSMENT: * See progress note from 12/01/19 for more background info, in short: * Pt receiving SQ basal bolus insulin regimen for hyperglycemia secondary to baseline DM (outpatient regimen on hold) and steroids yesterday during surgery. * Patient is currently receiving an average of 33 units of insulin per day * 15 units of basal insulin * 18 units of prandial/correctional insulin * BSGs ranging 124 - 279 mg/dl over the past 24hrs * Changes needed to insulin regimen: * AM Fasting BSG = 144 mg/dl. This is slightly above goal range for patient based on inpatient targets and co-morbidities. Will give second dose of NPH this morning as expect steroid effects to be prolonged. * Post-prandial BSGs were elevated yesterday and trended upwards. Tightened at bedtime. Continued tightened Novolog for breakfast but loosen ongoing. * Total daily dose = <20 units. Expect to lessen as time goes on. * Additional notes / comments: continue to hold metformin secondary to ZOE PLAN FOR INPATIENT GLYCEMIC CONTROL: * NPH 15 units SQ x 1 * LOOSENING correction factor to 25 mg/dl/unit * LOOSENING carb ratio to 1 unit per 8 grams CHO consumed * Continuing goal range of Low 110 mg/dL - High 140 mg/dL Recommendations from Discharge * Patient's HbA1C well controlled and below goal of 7% * Recommend continuing current outpatient therapy as long as eGFR remains above 30 mL/min Thank you.
[2019-12-02 15:33] LABS: BUN Creatinine Ratio 11.1 (10-20); Creatinine Clr Calc Pharmacy 38.5 ml/min; Est GFR (African American) 42.9
--- NOTE | 2019-12-03 23:12 | Discharge Summary ---
Date of Service December 02, 2019 Admission HPI Per Admitting Provider The patient is a 79 year old male who presents with complaints of severe right hip pain and DJD. The patient has failed outpatient conservative treatments to this point which included NSAIDs, IA corticosteroid injection, home exercise/walking program. The patient's pain and limited function have progressed to the point where they severely hinder their activities of daily living and they no longer tolerate exercise programs. They are requesting to proceed with total hip replacement surgery. Principal Diagnosis Right total hip replacement -Right hip DJD Discharge Exam RLE NVSI +EHL/FHL/TA/GS SILT grossly, +2 DP pulse, compartments soft NT, dressing cdi. Constitutional WD/WN, vitals as above Discharge Data Allergies Allergy/AdvReac Type Severity Reaction Status Date / Time No Known Allergies Allergy Verified 12/01/19 07:13 Consultations 12/02/19 08:00 Consult Case Management - Discharge Planning Routine Procedures Performed Operation Date: 12/01/19 09:15 Actual Procedures p Right Posterior Total Hip Arthroplasty(Right) - Aubrey Ashley DO Hospital Course (1) Degenerative joint disease of right hip: The patient is a 79 -year-old male who presents with long standing history of severe right hip DJD and failed outpatient conservative treatments. The patient's symptoms have progressed to the point where it has been difficult to perform even normal activities of daily living. I indicated the patient for a right total hip arthroplasty, the risks, benefits and complications of the procedure include but not limited to infection, bleeding, damage to bone, nerves, vessels, surrounding soft tissue, may develop blood clots, loss of function, leg length discrepancy, dislocation, failure of the components, loosening of the components, the need for additional surgery and . The patient wished to proceed with surgery at this time and informed consent was obtained. Hospital Course: On 12/01/19 the patient was taken to the operating room, adequate anesthesia administered and underwent a right total hip arthroplasty. The patient tolerated the procedure well and was taken to the PACU in stable condition. Post-operatively the patient was started on a DVT ppx medication and given appropriate IV antibiotics. Consults were placed to physical therapy, occupational therapy and case management. On POD#1, the patient did well overnight and their pain was well controlled. Labs were drawn and the Hgb was 12.2. The patient progressed well with PT. Dressings were changed at this time and the incision was clean, dry and intact. Cr 1.54, recheck in afternoon 1.7. The decision was made for close monitoring as outpatient with repeat BMP in 2 days, encouraged PO intake and follow up with PCP. The patients hospital stay was relatively uneventful and they were deemed stable by the orthopedic team and consultants to be discharged home with HH on 12/02/19. Discharge Instructions: Upon discharge the patient may weight bear as tolerates through their operative extremity. They were instructed to keep the incision clean and dry at all times. The patient may shower but should not submerge the incision, avoid bathing, pools and hot tubes. The patient was given a script for pain medication and should take as instructed. The patient was given a script for DVT ppx 81mg ASA BID and should take as directed. The patient was instructed to not drive or travel for long distances until cleared to do so. If the patient develops any symptoms of fevers, chills, nausea, vomiting, increased redness, swelling, pain or drainage from the surgical site, they should notify the office and/or proceed to the nearest emergency room. The patient should follow up in 10-14 days after surgery for their routine post-operative follow-up appointment and should call the office to confirm the date and time. Status post right total hip arthroplasty POD#1 -Ancef x 24 -DVT prophylaxis: SCDs, teds, 81mg ASA twice daily -Weight-bear as tolerated right lower extremity -PT/OT -Postoperative x-ray demonstrates a well line well fixed prosthesis without fracture or dislocation -A.m. labs - as above, hgb 12.2 -ZOE - Cr 1.54, will monitor, encouraged PO fluids, 1 L IV fluids ordered, will recheck in afternoon. -DC planning - home with HH Total Time Total Time Spent Total Time Spent (In Minutes): 30 Discharge Plan Discharge Items Patient Disposition: Home - Home Health Services Reason For Visit: Unilateral Primary Osteoarthritis, Right Hip Discharge Diagnosis: Right total hip replacement -Right hip DJD Condition on Discharge: Good Activity: Per Instructions section Lifting: Wait until after follow-up appointment Bathing: Keep incision dry Bathing Comment: No bathing, pools or hot tubs Sexual Activity: Wait until after follow-up appointment Exercise/Sports: Wait until after follow-up appointment Driving/Machine Use: No driving Weightbearing: Full weightbearing Non-emergency contact: Primary Care Provider and Surgeon Call non-emergency contact if: you have any medication questions, your symptoms worsen, your pain is not controlled, your pain is worsening, your pain is unusu al for you, your pain is concerning for you, you have a fever, your temperature is above 101, your wound has increased redness, your wound has increased drainage and your wound pain has increased Follow-up/Referrals: PCP,NO [Primary Care Provider] - Diet: Carb Consistent or DM2 Ambulatory Orders: Basic Metabolic Panel (Routine) Timeframe: 2 Days Location: Determined by Patient Ordered By: Aubrey Sullivan Attending Provider Instructions: ACTIVITY RECOMMENDATIONS: SELF CARE INSTRUCTIONS AFTER TOTAL HIP REPLACEMENT Until the incision and soft tissues around your hip have healed, there is a possibility that the hip prosthesis could dislocate. A. Observe the following precautions to prevent dislocation: 1. Don't bend your hip greater than 90 degrees. 2. Avoid crossing your legs or ankles while standing or lying. 3. Sit with your feet placed 6 inches apart. 4. When sitting, keep your knees below your hips. Sit on a firm surface, avoid deep, soft chairs and couches. Use an elevated toilet seat in the bathroom. 5. Don't bend over at the waist. Use a long handled shoehorn and a sock aid to help you put on your shoes and socks. A director search marketing strategies can help you last picker objects that are too high or too low to reach. 6. Keep car riding to a minimum for at least one month after surgery. B. Your balance may be shaky for a while. Use crutches or a walker until directed by your doctor. C. Use hand rails when walking on stairs. D. Wear low heeled shoes with non-slip soles. E. Be sure that your floors are free of things that could trip you - throw rugs, electrical cords, small objects. Avoid wet and waxed floors, especially with crutches and canes. F. Try to walk several times a day with rest periods between. G. Continue with all the exercises taught to you in the hospital. Again, make walking a part of your daily routine. SPECIAL CARE INSTRUCTIONS: VERY IMPORTANT TO READ AND REVIEW A. You may still be at risk for phlebitis and blood clots. 1. Wear surgical stockings (MARIOLA hose) for 2 weeks after surgery to improve circulation and reduce swelling. 2. Take Aspirin 81mg twice daily for 4 weeks or as directed by your doctor. This is your blood thinner. 3. High risk patients may be prescribed a stronger blood thinner if necessary. 4. If you are on Coumadin normally, your family doctor/jig fitter should monitor your blood work. Expect a phone call the day of or the day after bloodwork is drawn to adjust your dosage. B. You must take antibiotics before having dental work, bladder, bowel and other surgery. Your doctor will provide you with a permanent card to carry describing precautions. C. Call [facility] if you have a fever, redness or swelling around the incision, cloudy drainage from incision, or sudden increase in pain in your hip, not relieved by your regular pain medication. D. Please call the office at if you have any concerns or questions about your operation or recovery. * YOU MAY SHOWER, NO TUB BATHS UNTIL CLEARED BY YOUR DOCTOR. * WEAR MARIOLA HOSE 20 HOURS PER DAY FOR 2 WEEKS. * YOU SHOULD USE A WALKER OR CRUTCHES FOR 2-4 WEEKS. THIS WILL HELP PREVENT STRAIN ON YOUR HIP MUSCLE AND ALLOW IT TO HEAL PROPERLY. YOU MAY WEAN TO A CANE TOLERATED. * MOST PATIENTS WILL HAVE HOME NURSING FOR THERAPY. IF YOU DECIDE TO DO OUTPATIENT PHYSICAL THERAPY, PLEASE SCHEDULE THIS 3 TIMES PER WEEK. * YOU MAY HAVE A LARGE, BAND-MIKE LIKE DRESSING (SILVERON). THIS WILL REMAIN ON YOUR INCISION FOR 7 DAYS, THEN CAN BE REMOVED. IF INCISION IS LEAKING THROUGH DRESSING, PLEASE CALL THE OFFICE . FOLLOW UP VISIT: If appointment is not already scheduled: Please call [facility] to make a follow-up appointment for 2 weeks after your surgery at . Please follow up with your PCP within 1 week for repeat BMP results and elevated Cr. Pending Studies at Discharge: No Stand-Alone Forms: [employer] (T/A), Smoking Cessation Medications and DC Order Prescriptions: New aspirin 81 mg Tablet,Delayed Release (Dr/Ec) 81 mg PO BID Qty: 56 RF: 0 acetaminophen 500 mg Tablet 1,000 mg PO Q8 PRN (Reason: pain/fevers) Qty: 90 RF: 0 oxycodone 5 mg Tablet 5 mg PO Q6H MDD 4 PRN (Reason: pain) Qty: 30 RF: 0 sennosides [Senokot] 8.6 mg Tablet 17.2 mg PO HS PRN (Reason: constipation) Qty: 28 RF: 0 Continued omega 9-esv-zus-fish oil [Fish Oil] 1,000 mg (120 mg-180 mg) Capsule 1 cap PO QAM RF: 0 Glucosamine Chondroitin 550-30-1 mg Capsule 2 cap PO DAILY RF: 0 levothyroxine 125 mcg Tablet 125 mcg PO DAILY RF: 0 lisinopril 10 mg Tablet 10 mg PO DAILY RF: 0 metformin 500 mg Tablet 500 mg PO BID RF: 0 Vitamin C 1,000 mg Tablet Extended Release 1,000 mg PO QAM RF: 0 multivitamin Tablet 1 tab PO QAM RF: 0 pantoprazole 40 mg Tablet,Delayed Release (Dr/Ec) 40 mg PO QAM RF: 0 allopurinol 300 mg Tablet 300 mg PO QAM RF: 0 cholecalciferol (vitamin D3) [Vitamin D3] 1,000 unit Capsule 1,000 unit PO QAM RF: 0 atorvastatin 10 mg Tablet 10 mg PO QAM RF: 0 furosemide [Lasix] 20 mg Tablet 20 mg PO QAM RF: 0 Discontinued aspirin [Aspirin Low Dose] 81 mg Tablet,Delayed Release (Dr/Ec) 81 mg PO QAM RF: 0 Discharge Orders: Discharge Order (Routine); Ordered 12/02/19 Ordered By: Eugenio Chavez Admission Data Admit Date/Time: 12/01/19 17:12 Attending Provider: Aubrey Ashley Admit Provider: Aubrey Ashley Primary Care Provider: PCP,NO Other Interventions: Discharge Summary Assessment (RN) Last Done: 12/02/19 12:44
== END 2019-12-02 15:30 | disposition home health service (06) | DRG 470 ==
LOC: 3E 06:43 → ASU 06:43